=== PATIENT | male | born 1985 | race Caucasian/White ===

== ENCOUNTER 2016-07-19 20:50 | Emergency (ER) | payer BC, OTHER ==
[~2016-07-19] VITALS: Ht 375.9 cm; Wt 77.1 kg
[2016-07-19 21:10] VITALS: BP 118/55
[2016-07-19] MEDS ORDERED: SODIUM CHLORIDE 0.9% 1,000 ML IV ONE (21:45)
[2016-07-19] MEDS ORDERED: FAMOTIDINE (10MG/ML) 2ML VL IV ONE (21:45)
[2016-07-19] MEDS ORDERED: EPINEPHrine HCL 1 MG/1 ML AMP SC ONE (21:45)
[2016-07-19] MEDS ORDERED: methylPREDNISolone SOD SUCC 125 MG/2 ML VL IV ONE (21:45)
== END 2016-07-20 00:08 | disposition home or self-care (01) ==
LOC: EDBD 20:56 → ER 20:56
DX: T78.40XA Allergy, unspecified, initial encounter (principal); T78.3XXA Angioneurotic edema, initial encounter
CPT/HCPCS: 94761; 96361; 96372; 96374; 96375; 99284; J0171; J2930; J3490